=== PATIENT | female | born 1995 | race African-American/Black ===

== ENCOUNTER 2023-11-02 00:06 | Emergency (ER) | payer BC ==
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
[2023-11-02] MEDS ORDERED: LIDOCAINE VISCOUS 2% 10ML ORAL SOLN ONE (00:23)
[2023-11-02] MEDS ORDERED: MORPHINE 4 MG/ML SYR ONE (00:23)
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
[2023-11-02 23:04] VITALS: TEMP 98.1; O2SAT 100
[2023-11-02 23:06] VITALS: BP 124/83
== END 2023-11-02 00:58 | disposition home or self-care (01) ==
LOC: ER 00:06
DX: T20.20XA Burn of second degree of head, face, and neck, unspecified site, initial encounter (principal)